=== PATIENT | female | born 1980 | race Caucasian/White ===

== ENCOUNTER 2017-04-17 11:18 | Emergency (ER) | payer OTHER ==
[2017-04-17 11:33] VITALS: BP 141/94; PULSE 104; TEMP 99; BMI 26.6
--- NOTE | 2017-04-17 12:18 | PDOC ---
History of Present Illness - General Chief Complaint: Sore Throat Stated Complaint: THROAT PAIN Time Seen by Provider: 04/17/17 12:06 Past History - Past Medical History Allergies/Adverse Reactions: Allergies Allergy/AdvReac Type Severity Reaction Status Date / Time codeine Allergy Rash Verified 04/17/17 11:33 Home Medications: Ambulatory Orders Amoxicillin - [Amoxicillin 500mg Capsule -] 500 mg PO BID #14 capsule 04/17/17 Asthma: Yes COPD: No - Suicide/Smoking/Psychosocial Hx Smoking History: Never smoked Hx Alcohol Use: No Drug/Substance Use Hx: No Substance Use Type: None *Physical Exam - Vital Signs Last Vital Signs Temp Pulse Resp BP Pulse Ox 99.0 F 104 H 20 141/94 98 04/17/17 11:30 04/17/17 11:30 04/17/17 11:30 04/17/17 11:30 04/17/17 11:30 *DC/Admit/Observation/Transfer Diagnosis at time of Disposition: Pharyngitis Qualifiers: Pharyngitis/tonsillitis etiology: unspecified etiology Qualified Code(s): J02.9 - Acute pharyngitis, unspecified - Discharge Dispostion Disposition: HOME Condition at time of disposition: Good Admit: No - Prescriptions Prescriptions: Amoxicillin - [Amoxicillin 500mg Capsule -] 500 mg PO BID #14 capsule - Referrals Referrals: STAFF,NOT ON [Primary Care Provider] - Elaina Luu [Staff Physician] - - Patient Instructions Printed Discharge Instructions: DI for Pharyngitis/Tonsillopharyngitis -- Adult Additional Instructions: Your rapid strep test is negative today. However given her symptoms and the fact that your child has similar symptoms we will treat you've amoxicillin at this time. Please take 500 mg of amoxicillin twice a day for one week. Please throwing her toothbrush after treatment. You may take Motrin or Tylenol as needed for pain. Please drink plenty of fluids. Follow up with your primary care doctor within the week. Return to the emergency department if you have worsening pain, difficulty swallowing, drooling, changes in her voice, or any changes in your symptoms. - Post Discharge Activity
[2017-04-17] MEDS ORDERED: IBUPROFEN 600 MG TABLET (FP) PO ONE ×2 (12:47→12:48)
== END 2017-04-17 14:46 | disposition home or self-care (01) ==
LOC: JERFT 11:18
DX: J02.9 Acute pharyngitis, unspecified (principal)
CPT/HCPCS: 87070; 87430; 99281-25